=== PATIENT | male | born 1980 | race Caucasian/White ===

== ENCOUNTER 2019-01-18 01:53 | Emergency (ER) | payer SELFPAY ==
[~2019-01-18] VITALS: Ht 190.5 cm; Wt 81.6 kg
--- NOTE | ~2019-01-18 | EKG ---
[place], [place] ELECTROCARDIOGRAM REPORT NAME: KAT HUDDLESTON JR UNIT #: [id number] ROOM: DOCTOR: EPIPHANY DRAFT REPORT BIRTHDATE: [birth year] [facility] Test Date: 2019-01-18 Test Time: 02:45:59 Pat Name: KAT HUDDLESTON Department: Room: Gender: Director Of Residential Services: KAM : 1980 Requested By: BERNARDA HERNANDEZ Order Number: [id number] Reading MD: Bharat Murry MD Measurements Intervals [place] Rate: 90 P: 72 OK: 144 QRS: 50 QRSD: 97 T: 21 QT: 356 QTc: 436 Interpretive Statements Sinus rhythm Probable left atrial enlargement RSR' in V1 or V2, probably normal variant Left ventricular hypertrophy Electronically Signed On 01-21-2019 7:47:25 PDT by Bharat Murry MD CM:EKGRPT:ELECTROCARDIOGRAM REPORT [id number] BERNARDA JAMA DRAFT REPORT BERNARDA HERNANDEZ DO
[~2019-01-18 01:53] MED LIST: AMOXICILLIN500 M2 PO; AUGMENTIN 875 M1 TAB PO; CLEOCIN150 MG PO; CLINDAMYCIN HC300 MG PO; DAYPRO600 M1 PO; DICLOFENAC POTA50 MG PO; FLEXERIL10 MG PO; HYDROCODONE BIT1 T11 PO; MEDROL DOSEPAK4 MG PO; TRAMADOL HCL50 MG PO; VICODIN 500 MG-1 TAB PO
[2019-01-18 03:17] LABS: BASO # 0.1 10*3/uL (0.0-0.1); BASO % 0.3 % (0.0-1.0); EOS # 0.3 10*3/uL (0.0-0.4); EOS % 1.6 % (1.0-4.0); HEMATOCRIT 37.1 % (42.0-52.0); HEMOGLOBIN 12.7 g/dl (14.0-18.0); LYMPH # 1.7 10*3/uL (1.3-4.4); LYMPH % 9.5 % (27.0-41.0); MEAN CELL VOLUME 88.1 fl (80.0-94.0); MEAN CORPUSCULAR HGB 30.2 pg (27.0-31.0); MEAN CORPUSCULAR HGB CONC 34.2 g/dl (33.0-37.0); MEAN PLATELET VOLUME 10.4 fl (9.6-12.3); MONO # 1.1 10*3/uL (0.1-1.0); MONO % 6.2 % (3.0-9.0); NEUT % 81.8 % (47.0-73.0); PLATELET COUNT AUTOMATED 212 10*3/uL (130-400); RED BLOOD COUNT 4.21 10*6/uL (4.50-5.90); RED CELL DISTRI WIDTH 12.4 % (0-14.5); WHITE BLOOD COUNT 18.3 10*3/uL (4.8-10.8)
[2019-01-18 03:34] LABS: ALKALINE PHOSPHATASE 102 U/L (45-117); BUN 41 mg/dl (7-24); CHLORIDE 105 mmol/L (98-107); CREATININE 0.88 mg/dL (0.70-1.30); POTASSIUM 3.7 mmol/L (3.5-5.1); SGOT/AST 46 IU/L (3-35); SGPT/ALT 29 U/L (12-78); SODIUM 141 mmol/L (136-145); TOTAL PROTEIN 6.9 gm/dL (6.4-8.2); TROPONIN I 0.037 ng/ml (<0.045)
== END 2019-01-18 05:52 | disposition left against medical advice (07) ==
LOC: ED 01:53
PROVIDERS: Emergency Medicine
DX: T42.4X1A Poisoning by benzodiazepines, accidental (unintentional), initial encounter (principal); R41.0 Disorientation, unspecified; R45.1 Restlessness and agitation; R47.81 Slurred speech; R25.1 Tremor, unspecified; F17.200 Nicotine dependence, unspecified, uncomplicated; Z88.0 Allergy status to penicillin; Y92.096 Garden or yard of other non-institutional residence as the place of occurrence of the external cause

== ENCOUNTER 2020-03-14 23:37 | Emergency (ER) | payer SELFPAY ==
[~2020-03-14] VITALS: Ht 190.5 cm; Wt 77.1 kg
[2020-03-15 00:21] LABS: BASO % 0.3 % (0.0-1.0); EOS # 0.4 10*3/uL (0.0-0.4); EOS % 4.1 % (1.0-4.0); HEMATOCRIT 37.6 % (42.0-52.0); LYMPH # 1.3 10*3/uL (1.3-4.4); MEAN CELL VOLUME 81.7 fl (80.0-94.0); MEAN CORPUSCULAR HGB 26.3 pg (27.0-31.0); MEAN CORPUSCULAR HGB CONC 32.2 g/dl (33.0-37.0); MEAN PLATELET VOLUME 9.4 fl (9.6-12.3); MONO % 10.1 % (3.0-9.0); NEUT # 6.7 10*3/uL (2.3-7.9); NEUT % 71.1 % (47.0-73.0); PLATELET COUNT AUTOMATED 312 10*3/uL (130-400); RED CELL DISTRI WIDTH 13.7 % (0-14.5); WHITE BLOOD COUNT 9.5 10*3/uL (4.8-10.8)
[2020-03-15 00:30] LABS: ACT PARTIAL THROMBO TIME 27.1 SECONDS (20.0-32.1)
[2020-03-15 00:37] LABS: ACETAMINOPHEN (TYLENOL) < 5.0 ug/ml (10-30); ETHYL ALCOHOL < 3.0 mg/dl (<3)
[2020-03-15 00:39] LABS: ALBUMIN 3.3 gm/dl (3.1-4.5); ALKALINE PHOSPHATASE 166 U/L (45-117); BUN 18 mg/dl (7-24); CHLORIDE 109 mmol/L (98-107); CREATININE 0.81 mg/dL (0.70-1.30); POTASSIUM 3.6 mmol/L (3.5-5.1); SGOT/AST 527 IU/L (3-35); SGPT/ALT 852 U/L (12-78); SODIUM 137 mmol/L (136-145); TOTAL PROTEIN 6.6 gm/dL (6.4-8.2)
[2020-03-15 00:40] LABS: TROPONIN I < 0.015 ng/ml (<0.045)
== END 2020-03-15 01:30 | disposition home or self-care (01) ==
LOC: ED 23:37
PROVIDERS: Emergency Medicine Emergency Medical Services
DX: T40.4X1A Poisoning by other synthetic narcotics, accidental (unintentional), initial encounter (principal); F11.10 Opioid abuse, uncomplicated; F17.200 Nicotine dependence, unspecified, uncomplicated; Z88.0 Allergy status to penicillin; Y92.89 Other specified places as the place of occurrence of the external cause

== ENCOUNTER 2020-04-12 12:47 | Emergency (ER) | payer MEDICAID ==
[~2020-04-12] VITALS: Ht 190.5 cm; Wt 79.4 kg
[2020-04-12 13:17] LABS: BASO # 0.1 10*3/uL (0.0-0.1); BASO % 0.4 % (0.0-1.0); EOS # 0.1 10*3/uL (0.0-0.4); EOS % 0.9 % (1.0-4.0); HEMATOCRIT 36.9 % (42.0-52.0); LYMPH # 1.4 10*3/uL (1.3-4.4); MEAN CELL VOLUME 81.8 fl (80.0-94.0); MEAN CORPUSCULAR HGB 27.1 pg (27.0-31.0); MEAN CORPUSCULAR HGB CONC 33.1 g/dl (33.0-37.0); MEAN PLATELET VOLUME 9.6 fl (9.6-12.3); MONO # 1.3 10*3/uL (0.1-1.0); MONO % 10.4 % (3.0-9.0); NEUT # 9.9 10*3/uL (2.3-7.9); NEUT % 77.1 % (47.0-73.0); PLATELET COUNT AUTOMATED 282 10*3/uL (130-400); RED BLOOD COUNT 4.51 10*6/uL (4.50-5.90); WHITE BLOOD COUNT 12.8 10*3/uL (4.8-10.8)
[2020-04-12 13:28] LABS: ACT PARTIAL THROMBO TIME 25.4 SECONDS (20.0-32.1)
[2020-04-12 13:34] LABS: ALBUMIN 3.6 gm/dl (3.1-4.5); ALKALINE PHOSPHATASE 145 U/L (45-117); BUN 28 mg/dl (7-24); CHLORIDE 108 mmol/L (98-107); CREATININE 0.98 mg/dL (0.70-1.30); POTASSIUM 3.8 mmol/L (3.5-5.1); SGOT/AST 214 IU/L (3-35); SGPT/ALT 302 U/L (12-78); SODIUM 141 mmol/L (136-145); TOTAL PROTEIN 7.2 gm/dL (6.4-8.2); TROPONIN I 0.032 ng/ml (<0.045)
[2020-04-12 13:37] LABS: ETHYL ALCOHOL < 3.0 mg/dl (<3)
[2020-04-12 14:12] LABS: URINE AMPHETAMINES > 1000 (1000ng/ml); URINE BARBITURATES < 200 (200ng/ml); URINE BENZODIAZEPINES < 200 (200ng/ml); URINE CANNABINOIDS (THC) < 50 (50ng/ml); URINE COCAINE < 300 (300ng/ml); URINE METHADONE < 300 (300ng/ml); URINE OPIATES < 300 (300ng/ml)
[2020-04-12 14:13] LABS: URINE PHENCYCLIDINE < 25 (25ng/ml)
[2020-04-12 14:21] LABS: BILIRUBIN NEGATIVE; BLOOD TRACE-INTACT (NEGATIVE); CLARITY CLOUDY (CLEAR); COLOR YELLOW (YELLOW); GLUCOSE NEGATIVE; KETONE TRACE; SPECIFIC GRAVITY 1.025 (1.001-1.030)
[2020-04-12 14:22] LABS: BACTERIA 2+; LEUKO ESTERASE NEGATIVE (NEGATIVE); NITRITE NEGATIVE (NEGATIVE)
[2020-04-15 06:07] LABS: HEP B CORE AB, IGM Negative (Negative); HEPATITIS B SURFACE AG Negative (Negative)
[2020-04-15 14:17] LABS: HEPATITIS C VIRUS ANTIBODY >11.0 s/co (0.0-0.9)
== END 2020-04-12 17:23 | disposition home or self-care (01) ==
LOC: ED 12:47
PROVIDERS: Emergency Medicine
DX: F15.10 Other stimulant abuse, uncomplicated (principal); R74.0 Nonspecific elevation of levels of transaminase and lactic acid dehydrogenase [LDH]; Z88.0 Allergy status to penicillin

== ENCOUNTER 2020-04-22 20:07 | Emergency (ER) | payer MEDICAID ==
[~2020-04-22] VITALS: Ht 182.8 cm; Wt 81.6 kg
== END 2020-04-22 21:10 | disposition home or self-care (01) ==
LOC: ED 20:07
DX: F11.129 Opioid abuse with intoxication, unspecified (principal); F17.200 Nicotine dependence, unspecified, uncomplicated; Z88.0 Allergy status to penicillin

== ENCOUNTER 2020-04-24 18:38 | Inpatient (IN) | payer MEDICAID ==
[~2020-04-24] VITALS: Ht 180.3 cm; Wt 72.8 kg
[2020-04-24 18:44] VITALS: BP 160/60
[2020-04-24 19:08] LABS: BASO % 0.4 % (0.0-1.0); EOS # 0.5 10*3/uL (0.0-0.4); EOS % 5.3 % (1.0-4.0); HEMATOCRIT 37.2 % (42.0-52.0); LYMPH # 1.7 10*3/uL (1.3-4.4); LYMPH % 19.8 % (27.0-41.0); MEAN CORPUSCULAR HGB 26.8 pg (27.0-31.0); MEAN CORPUSCULAR HGB CONC 33.1 g/dl (33.0-37.0); MEAN PLATELET VOLUME 8.9 fl (9.6-12.3); MONO # 0.7 10*3/uL (0.1-1.0); MONO % 8.7 % (3.0-9.0); NEUT # 5.6 10*3/uL (2.3-7.9); NEUT % 65.6 % (47.0-73.0); PLATELET COUNT AUTOMATED 310 10*3/uL (130-400); RED BLOOD COUNT 4.59 10*6/uL (4.50-5.90); RED CELL DISTRI WIDTH 14.4 % (0-14.5); WHITE BLOOD COUNT 8.5 10*3/uL (4.8-10.8)
[2020-04-24 19:19] LABS: ACT PARTIAL THROMBO TIME 27.1 SECONDS (20.0-32.1)
[2020-04-24 19:30] LABS: ALBUMIN 3.5 gm/dl (3.1-4.5); ALKALINE PHOSPHATASE 135 U/L (45-117); BUN 21 mg/dl (7-24); CHLORIDE 109 mmol/L (98-107); CPK 270 U/L (39-308); CREATININE 0.85 mg/dL (0.70-1.30); POTASSIUM 3.2 mmol/L (3.5-5.1); SGOT/AST 31 IU/L (3-35); SGPT/ALT 35 U/L (12-78); SODIUM 142 mmol/L (136-145)
[2020-04-24 19:33] LABS: ACETAMINOPHEN (TYLENOL) < 5.0 ug/ml (10-30); ETHYL ALCOHOL < 3.0 mg/dl (<3); TROPONIN I < 0.015 ng/ml (<0.045)
[2020-04-24 21:19] LABS: BILIRUBIN NEGATIVE; CLARITY CLEAR (CLEAR); COLOR DARK YELLOW (YELLOW); GLUCOSE NEGATIVE; KETONE NEGATIVE; SPECIFIC GRAVITY > 1.030 (1.001-1.030)
[2020-04-24 21:20] LABS: BLOOD TRACE-INTACT (NEGATIVE); LEUKO ESTERASE NEGATIVE (NEGATIVE); NITRITE NEGATIVE (NEGATIVE); PH 5.5 (4.5-8.0)
[2020-04-24 21:23] LABS: URINE AMPHETAMINES > 1000 (1000ng/ml); URINE BARBITURATES < 200 (200ng/ml); URINE BENZODIAZEPINES < 200 (200ng/ml); URINE CANNABINOIDS (THC) < 50 (50ng/ml); URINE COCAINE > 300 (300ng/ml); URINE METHADONE < 300 (300ng/ml); URINE OPIATES > 300 (300ng/ml)
[2020-04-24 21:24] LABS: BACTERIA TRACE; EPITHELIAL CELLS 0-2; MUCOUS TRACE; RBC 0-2 rbc/hpf (0-2)
[2020-04-24 21:25] LABS: URINE PHENCYCLIDINE < 25 (25ng/ml)
[2020-04-24 23:45] VITALS: BP 134/78
[2020-04-25] VITALS: BP 147/100
[2020-04-25 04:00] VITALS: BP 147/98
[2020-04-25 06:19] LABS: BASO % 0.4 % (0.0-1.0); EOS # 0.5 10*3/uL (0.0-0.4); HEMATOCRIT 40.9 % (42.0-52.0); LYMPH # 1.6 10*3/uL (1.3-4.4); LYMPH % 17.6 % (27.0-41.0); MEAN CELL VOLUME 83.1 fl (80.0-94.0); MEAN CORPUSCULAR HGB CONC 32.5 g/dl (33.0-37.0); MEAN PLATELET VOLUME 9.7 fl (9.6-12.3); MONO # 0.7 10*3/uL (0.1-1.0); MONO % 8.1 % (3.0-9.0); NEUT # 6.1 10*3/uL (2.3-7.9); NEUT % 67.7 % (47.0-73.0); PLATELET COUNT AUTOMATED 333 10*3/uL (130-400); RED BLOOD COUNT 4.92 10*6/uL (4.50-5.90); RED CELL DISTRI WIDTH 14.6 % (0-14.5)
[2020-04-25 06:29] LABS: ALBUMIN 3.3 gm/dl (3.1-4.5); BUN 18 mg/dl (7-24); CHLORIDE 110 mmol/L (98-107); SODIUM 141 mmol/L (136-145)
[2020-04-25 06:39] LABS: ALKALINE PHOSPHATASE 136 U/L (45-117); CHOLESTEROL 117 mg/dL (<200); CREATININE 0.72 mg/dL (0.70-1.30); HDL CHOLESTEROL 44 mg/dl (40-60); LDL CHOLESTEROL 63 mg/dL (9-159); SGOT/AST 34 IU/L (3-35); SGPT/ALT 37 U/L (12-78); THYROID STIM HORMONE (HS) 0.967 uIU/ml (0.358-4.75); TOTAL PROTEIN 7.2 gm/dL (6.4-8.2); TRIGLYCERIDES 49 mg/dl (<150); VLDL CHOLESTEROL 10 mg/dL (6-40)
[2020-04-25 08:00] VITALS: BP 153/99
[2020-04-25 12:00] VITALS: BP 144/84
[2020-04-25 16:00] VITALS: BP 138/88
[2020-04-25 20:00] VITALS: BP 148/82
[2020-04-26] VITALS: BP 150/80
[2020-04-26 08:00] VITALS: BP 108/79
== END 2020-04-26 12:07 | disposition left against medical advice (07) | DRG 770 ==
LOC: ED 18:38 → EDBD 18:41 → ED 18:41 → EDHOLD 22:34 → ICCU 22:34
PROVIDERS: Emergency Medicine; Internal Medicine; ADMIT Internal Medicine; ATTEND Internal Medicine
DX: F11.20 Opioid dependence, uncomplicated (principal); F23 Brief psychotic disorder; R00.0 Tachycardia, unspecified; D64.9 Anemia, unspecified; E87.6 Hypokalemia; E87.8 Other disorders of electrolyte and fluid balance, not elsewhere classified; R74.8 Abnormal levels of other serum enzymes; Z53.29 Procedure and treatment not carried out because of patient's decision for other reasons; B19.20 Unspecified viral hepatitis C without hepatic coma; F39 Unspecified mood [affective] disorder; E83.51 Hypocalcemia; R31.29 Other microscopic hematuria; F15.10 Other stimulant abuse, uncomplicated; F14.10 Cocaine abuse, uncomplicated; E83.41 Hypermagnesemia; Z88.0 Allergy status to penicillin

== ENCOUNTER 2020-05-01 20:11 | Emergency (ER) | payer MEDICAID ==
[2020-05-01 20:29] LABS: BASO # 0.1 10*3/uL (0.0-0.1); BASO % 0.9 % (0.0-1.0); EOS # 0.7 10*3/uL (0.0-0.4); EOS % 10.8 % (1.0-4.0); HEMATOCRIT 37.4 % (42.0-52.0); LYMPH # 1.9 10*3/uL (1.3-4.4); LYMPH % 27.7 % (27.0-41.0); MEAN CELL VOLUME 81.8 fl (80.0-94.0); MEAN CORPUSCULAR HGB 26.9 pg (27.0-31.0); MEAN CORPUSCULAR HGB CONC 32.9 g/dl (33.0-37.0); MEAN PLATELET VOLUME 9.3 fl (9.6-12.3); MONO # 0.9 10*3/uL (0.1-1.0); MONO % 13.5 % (3.0-9.0); NEUT # 3.1 10*3/uL (2.3-7.9); PLATELET COUNT AUTOMATED 355 10*3/uL (130-400); RED BLOOD COUNT 4.57 10*6/uL (4.50-5.90); RED CELL DISTRI WIDTH 14.2 % (0-14.5); WHITE BLOOD COUNT 6.7 10*3/uL (4.8-10.8)
[2020-05-01 20:46] LABS: ALBUMIN 3.5 gm/dl (3.1-4.5); ALKALINE PHOSPHATASE 118 U/L (45-117); BUN 23 mg/dl (7-24); CHLORIDE 109 mmol/L (98-107); CREATININE 0.97 mg/dL (0.70-1.30); POTASSIUM 3.4 mmol/L (3.5-5.1); SGOT/AST 28 IU/L (3-35); SGPT/ALT 30 U/L (12-78); SODIUM 141 mmol/L (136-145); TOTAL PROTEIN 7.2 gm/dL (6.4-8.2)
[2020-05-01 20:48] LABS: ACETAMINOPHEN (TYLENOL) < 5.0 ug/ml (10-30); ETHYL ALCOHOL < 3.0 mg/dl (<3)
[2020-05-01 21:10] LABS: TROPONIN I < 0.015 ng/ml (<0.045)
[2020-05-01 21:49] LABS: BILIRUBIN Negative; BLOOD Negative (NEGATIVE); CLARITY Clear (CLEAR); COLOR Dark Yellow (YELLOW); GLUCOSE Negative; KETONE Negative; PH 5.5 (4.5-8.0); SPECIFIC GRAVITY > 1.030 (1.001-1.030)
[2020-05-01 21:50] LABS: LEUKO ESTERASE 1+ (NEGATIVE); NITRITE Negative (NEGATIVE)
[2020-05-01 21:57] LABS: URINE AMPHETAMINES > 1000 (1000ng/ml); URINE BARBITURATES < 200 (200ng/ml); URINE BENZODIAZEPINES > 200 (200ng/ml); URINE CANNABINOIDS (THC) < 50 (50ng/ml); URINE COCAINE > 300 (300ng/ml); URINE METHADONE < 300 (300ng/ml); URINE OPIATES < 300 (300ng/ml)
[2020-05-01 21:58] LABS: URINE PHENCYCLIDINE < 25 (25ng/ml)
[2020-05-01 21:59] LABS: BACTERIA TRACE; MUCOUS 2+
== END 2020-05-02 10:17 | disposition home or self-care (01) ==
LOC: ED 20:11
PROVIDERS: Emergency Medicine Emergency Medical Services
DX: F19.10 Other psychoactive substance abuse, uncomplicated (principal); Z88.0 Allergy status to penicillin

== ENCOUNTER 2020-05-12 18:09 | Emergency (ER) | payer SELFPAY ==
[~2020-05-12] VITALS: Ht 182.8 cm; Wt 86.2 kg
== END 2020-05-13 08:01 | disposition home or self-care (01) ==
LOC: ED 18:09
DX: S01.01XA Laceration without foreign body of scalp, initial encounter (principal); F39 Unspecified mood [affective] disorder; F19.10 Other psychoactive substance abuse, uncomplicated; Z88.0 Allergy status to penicillin; X58.XXXA Exposure to other specified factors, initial encounter; Y93.89 Activity, other specified; Y92.89 Other specified places as the place of occurrence of the external cause; Y99.8 Other external cause status

== ENCOUNTER 2020-05-23 16:30 | Emergency (ER) | payer SELFPAY ==
[~2020-05-23] VITALS: Wt 81.6 kg
[2020-05-23] MEDS ORDERED: DOXYCYCLINE100 M3 PO (16:53)
== END 2020-05-23 16:57 | disposition home or self-care (01) ==
LOC: ED 16:30
DX: S01.91XD Laceration without foreign body of unspecified part of head, subsequent encounter (principal); Z48.02 Encounter for removal of sutures; F17.200 Nicotine dependence, unspecified, uncomplicated; X58.XXXD Exposure to other specified factors, subsequent encounter

== ENCOUNTER 2022-02-23 15:36 | Emergency (ER) | payer SELFPAY ==
[~2022-02-23 15:36] MED LIST changes: +DOXYCYCLINE100 M3 PO
[2022-02-23] MEDS ORDERED: Motrin,Rufen800 MG PO (16:09)
[2022-02-23] MEDS ORDERED: CLINDAMYCIN HC300 MG PO (16:09)
== END 2022-02-23 16:28 | disposition home or self-care (01) ==
LOC: ED 15:36
DX: K04.7 Periapical abscess without sinus (principal); Z88.0 Allergy status to penicillin; Z79.2 Long term (current) use of antibiotics

== ENCOUNTER 2022-07-28 08:39 | Emergency (ER) | payer MEDICAID ==
[~2022-07-28] VITALS: Ht 190.5 cm; Wt 81.6 kg
[~2022-07-28 08:39] MED LIST changes: +Motrin,Rufen800 MG PO
[2022-07-28] MEDS ORDERED: CLEOCIN HCL150 MG PO (09:27)
== END 2022-07-28 09:39 | disposition home or self-care (01) ==
LOC: ED 08:39
DX: K02.9 Dental caries, unspecified (principal); Z88.0 Allergy status to penicillin

== ENCOUNTER 2024-05-20 13:37 | Emergency (ER) | payer OTHER ==
[~2024-05-20] VITALS: Ht 190.5 cm; Wt 81.6 kg
[~2024-05-20 13:37] MED LIST changes: +CLEOCIN HCL150 MG PO
[2024-05-20] MEDS ORDERED: SUBOXONE 8 MG-1 EACH BC (13:59)
[2024-05-20] MEDS ORDERED: CLINDAMYCIN HC300 MG PO (14:04)
[2024-05-20] MEDS ORDERED: CLINDAMYCIN HCL 300 MG CAPSULE PO ONE (14:05)
== END 2024-05-20 14:35 | disposition home or self-care (01) ==
LOC: ED 13:37
DX: K04.7 Periapical abscess without sinus (principal); E78.00 Pure hypercholesterolemia, unspecified; E83.41 Hypermagnesemia; E83.51 Hypocalcemia; E87.6 Hypokalemia; D64.9 Anemia, unspecified; F11.10 Opioid abuse, uncomplicated; Z88.0 Allergy status to penicillin

== ENCOUNTER 2025-01-20 09:46 | Emergency (ER) | payer OTHER ==
[~2025-01-20] VITALS: Wt 83.9 kg
[~2025-01-20 09:46] MED LIST changes: +SUBOXONE 8 MG-1 EACH BC
[2025-01-20] MEDS ORDERED: AMOX-CLAV 875-1 EACH PO (10:13)
== END 2025-01-20 10:20 | disposition home or self-care (01) ==
LOC: ED 09:46
DX: K02.9 Dental caries, unspecified (principal); K04.7 Periapical abscess without sinus; Z79.899 Other long term (current) drug therapy; Z88.0 Allergy status to penicillin

== ENCOUNTER 2025-03-21 17:11 | Emergency (ER) | payer OTHER ==
[~2025-03-21] VITALS: Ht 190.5 cm; Wt 81.6 kg
[~2025-03-21 17:11] MED LIST changes: +AMOX-CLAV 875-1 EACH PO
[2025-03-21] MEDS ORDERED: AMOX-CLAV 875-1 EACH PO (17:47)
[2025-03-21] MEDS ORDERED: Amoxicillin/Clavulanate Pota 875 MG TAB PO ONE (17:50)
== END 2025-03-21 17:57 | disposition home or self-care (01) ==
LOC: ED 17:11
DX: K04.7 Periapical abscess without sinus (principal); F17.290 Nicotine dependence, other tobacco product, uncomplicated; Z88.0 Allergy status to penicillin; Z79.899 Other long term (current) drug therapy